=== PATIENT | male | born 1995 | race Caucasian/White ===

== ENCOUNTER 2017-04-13 23:44 | Emergency (ER) | payer SELFPAY ==
[~2017-04-13] VITALS: Ht 180.3 cm; Wt 91.9 kg
[~2017-04-13 23:44] MED LIST: AZIT250T6 PO; NAPR220T61 PO
--- OUTSIDE RECORDS SUMMARY | 2017-04-13 23:49 | XMS REPORT ---
Author Maritza Morton Organization [employer] Address Unknown Phone Unavailable Care Team Providers Care Senior Functional Analyst Name Role Phone Maritza Yoo CP Unavailable Allergies No Known Allergies Problems Problem Type Condition Code Onset Dates Condition Status Problem Depressive disorder, not elsewhere classified (depression) 311 Active Problem (Autism active)Autistic disorder, current or active state 299.00 Active Medications No Known Medications Results No Known Results Summary Purpose [employer] Submission
[2017-04-14 00:02] VITALS: Ht 180.3 cm; Wt 91.9 kg
[2017-04-14] MEDS ORDERED: NO ROUTINE MEDS (00:22)
--- NOTE | 2017-04-14 00:38 | ERPDOC ---
Departure Disposition Decision Date: April 14, 2017 Disposition Decision Time: 00:39 Disposition: 01 DISCHARGED HOME, SELF-CARE Impression Impression Impression: Primary Impression: Anxiety Additional Impression: Panic disorder Severity: Moderate Condition: Improved Seen By: Physician only Patient Instructions: Panic Disorder (ED) Problems/Meds/Labs Reviewed?: Yes Medications reviewed and manag: Yes Additional Instructions: See a primary care doctor or psychologist of your choice. I would recommend starting at [facility] or [place] Follow up care ordered?: Yes Mental Status: Alert HPI - Psychosocial General Chief Complaint: Psychiatric Problems Stated Complaint: CHEST PAIN,TROUBLE BREATHING Time Seen by MD: 00:29 Source: patient, family Exam Limitations: no limitations HPI - Psychosocial Initial Comments Pt complains of a feeling of panic, nervousness, chest tightness and difficulty breathing for the past several days. Tonight symptoms seemed intolerable. Patient's mother accompanies him, and states that he has had panic attacks with anxiety in the past, but has not had any problems recently. Patient has no physician, and has not seen a psychiatrist or psychologist in many years. Patient has had medical treatment for mental problems in the past however Occurred At: home Onset: Gradual Duration: 1 week Associated Symptoms: anxiety Allergies: Coded Allergies: amoxicillin (Verified Allergy, Unknown, 04/14/17) erythromycin base (Verified Allergy, Unknown, 04/14/17) sulfisoxazole (Verified Allergy, Unknown, 04/14/17) Past History Past Medical History Respiratory: asthma Psychological: other Surgical History Denies Surgeries Social History Smoking Status: Never smoker Does patient use chewing tobac: No Second Hand Exposure: No Substance Use Type: does not use Alcohol Intake: none Record Review Pertinent history updated: Yes Review of Systems Constitutional Constitutional: DENIES: appetite decrease, appetite increase, chills, dizziness , fever, weakness ENMT Ears: DENIES: pain Hearing: DENIES: hearing loss, tinnitus Balance: DENIES: vertigo Mouth/Throat: DENIES: change in swallowing, change in voice, hoarsness, painful swallowing, sore throat Cardiovascular Cardiac: DENIES: chest pain, dyspnea on exertion Rhythm/Rate: DENIES: irregular beat, palpitations, tachycardia Vascular: DENIES: pedal edema Pulmonary Respiratory: dyspnea, DENIES: cough, exposure to TB, hyperventilation, last PPD , pleuritic chest pain, pneumonia hx, recent risky activities, sputum, tachypnea GI Upper Abdomen: DENIES: dysphagia, heartburn/indigestion, nausea, pain, vomiting Lower Abdomen: DENIES: blood in stool, constipation, diarrhea, pain General: DENIES: burning, dysuria, frequency, pain, urgency Musculoskeletal General: DENIES: cramps, joint pain, joint swelling, pain, weakness Integumentary Skin: DENIES: rash, sores Neurological General: DENIES: headache, numbness, tingling, vertigo, weakness Psychiatric Psychiatric: DENIES: anxiety, depression, nervousness Physical Exam General General Nourishment: well nourished, well developed, appears stated age, no acute distress, thin General Body Habitus: well groomed Vitals and Pain First Documented Vital Signs Date Time Temp Pulse Resp B/P Pulse Ox O2 Delivery O2 Flow Rate FiO2 04/14/17 00:02 97.8 108 12 131/72 100 Room Air Weight: Kilograms: 91.900 Height (feet): 5 Height (inches): 11.00 Triage Pain Scale: RN VS reviewed by Provider: Yes Comments As I entered the room, observed the patient for greater than 30 seconds, he was breathing normally, had no dyspnea, and had no obvious distress. When asked the patient why he was here, he began breathing and an abnormal manner, taking long deep and frequent inhalations and exhalations, pursing his lips, and making his eyes water. Normal Exams: Head: Normocephalic w/o trauma Eyes: Pupils are PERRLA w/ EOMI, No scleral icterus, irritation, or foreign bodies noted ENMT: No facial trauma, nasal exudates, pharyngeal erythema, or exudates are noted Neck: Full range of motion, without adenopathy, JVD, bruits or thyromegaly Chest/Resp: Clear all graves, with good airflow, and symmetry bilaterally CV: Regular rate and rhythm, without murmur or gallop, Pulses 2+ all extremities, capillary refill, <2 seconds all ext., no pedal edema noted Abdomen: Bowel sounds positive, soft, non-tender, non-distended, no hepatosplenomegaly, masses or bruits noted Lymphatic: No lymphadenopathy, or lymphedema noted Musculoskeletal: No tenderness, or deformity noted, good range of motion, all extremities Integumentary: No rashes, hives, or bruising noted, hair and nails, without abnormality Neurologic: Patient is alert, and oriented, cranial nerves, motor/sensory/ cerebellar, exams w/o gross deficits, to observation Psychiatric: Patient exhibits, appropriate attention, emotion and affect Progress Progress Progress Vital signs are completely normal, and has no tachycardia, tachypnea, hypoxemia , or blood pressure changes. Patient has no indication of functional or anatomic cause of his dyspnea, and was told breathes normally the patient does without difficulty. Patient clearly has either manipulative disorder or anxiety, and is given 2 mg Ativan to help with his nerves so that he can sleep tonight, his mother couldn' t sleep tonight, and she can arrange for outpatient [facility] showed [facility] view of continues to have anxiety issues. EMIGDIO CHISHOLM MD April 14, 2017 00:38
[2017-04-14] MEDS ORDERED: LORAZEPAM 2 MG/ML INJECTION IM ONE (00:45)
--- NOTE | 2017-04-14 01:00 | NUR ---
INSTRUCTIONS DISMISSAL INSTRUCTIONS GIVEN TO PT AND MOTHER MOM PLANS FOR HIM TO FOLLOW-UP AT [facility] WHERE SHE GOES
[2017-04-14 01:01] VITALS: BP 131/72; PULSE 108; RESP 12; TEMP 97.8; O2SAT 100
--- NOTE | 2017-04-14 01:01 | NUR ---
DISMISS PT DISMISSED AMBULATORY WITH MOTHER
== END 2017-04-14 01:01 | disposition home or self-care (01) ==
LOC: ED 23:44
DX: F41.0 Panic disorder [episodic paroxysmal anxiety] (principal); F41.9 Anxiety disorder, unspecified; R45.0 Nervousness; R07.89 Other chest pain; R06.00 Dyspnea, unspecified
CPT/HCPCS: 96372